=== PATIENT | female | born 1985 | race Two or more races ===

== ENCOUNTER 2017-07-07 14:26 | Emergency (ER) | payer SELFPAY ==
[~2017-07-07] VITALS: Ht 152.4 cm; Wt 68.0 kg
[2017-07-07 14:45] VITALS: BP 131/71
== END 2017-07-07 17:33 | disposition left against medical advice (07) ==
LOC: ER 14:40
DX: R10.9 Unspecified abdominal pain (principal); R11.0 Nausea; Z53.21 Procedure and treatment not carried out due to patient leaving prior to being seen by health care provider